=== PATIENT | male | born 1980 | race Caucasian/White ===

== ENCOUNTER → 2018-05-04 | Outpatient (CLI) | payer MEDICARE, OTHER ==
[2018-05-04 08:21] LABS: BASO # 0.1 x10^3/uL (0.0-0.2); BASO % 1 % (0-3); EOS # 0.3 x10^3/uL (0.0-0.7); EOS % 2 % (0-3); HEMATOCRIT 42.9 % (39.0-53.0); LYMPH % 19 % (24-48); MEAN CORPUSCULAR HEMOGLOBIN 33 pg (25-35); MEAN CORPUSCULAR HGB CONC 35 g/dL (31-37); MEAN CORPUSCULAR VOLUME 94 fL (79-100); MONO # 0.8 x10^3/uL (0.0-1.1); MONO % 7 % (0-9); NEUT # 7.4 x10^3uL (1.8-7.7); NEUT % 70 % (31-73); PLATELET COUNT 283 x10^3/uL (140-400); RED BLOOD COUNT 4.57 x10^6/uL (4.30-5.70); RED CELL DISTRIBUTION WIDTH 13.8 % (11.5-14.5); WHITE BLOOD COUNT 10.5 x10^3/uL (4.0-11.0)
[2018-05-04 09:50] LABS: ALBUMIN 3.4 g/dL (3.4-5.0); ALBUMIN/GLOBULIN RATIO 0.8 (1.0-1.7); CALCIUM 8.6 mg/dL (8.5-10.1); CREATININE 0.9 mg/dL (0.7-1.3); GFR 95.5; POTASSIUM 4.5 mmol/L (3.5-5.1); TOTAL BILIRUBIN 0.3 mg/dL (0.2-1.0); TOTAL PROTEIN 7.6 g/dL (6.4-8.2)
[2018-05-04 13:50] LABS: FREE T4 0.65 ng/dL (0.76-1.46); THYROID STIM HORMONE (TSH) 14.368 uIU/mL (0.358-3.740)
== END | disposition home or self-care (01) ==
LOC: LAB 07:21
DX: Z51.81 Encounter for therapeutic drug level monitoring (principal); Z79.899 Other long term (current) drug therapy
CPT/HCPCS: 36415; 80053; 80061; 82306; 84439; 84443; 84480; 85025

== ENCOUNTER 2018-05-09 11:31 | Emergency (ER) | payer MEDICARE, OTHER ==
[~2018-05-09] VITALS: Ht 172.7 cm; Wt 173.0 kg
[2018-05-09 11:45] VITALS: BP 152/91
[2018-05-09] MEDS ORDERED: HYDR-2758 PO (11:54)
[2018-05-09] MEDS ORDERED: HYDROcodone/APAP 5/325MG 1 TAB TABLET PO ONE (12:00)
--- NOTE | 2018-05-09 12:05 | PHYS DOC ---
Past History Past Medical History: Anxiety, Depression, Hypertension Past Surgical History: Cholecystectomy, Other Alcohol Use: None Drug Use: None Adult General Chief Complaint Chief Complaint: LOWER BACK PAIN OR INJURY HPI HPI 37-year-old male presenting to the emergency department today with atraumatic low back pain and bilateral leg pain. This started about 3 weeks ago. He really started his job which requires a lot of standing. After long hours standing he developed low back pain and leg pain. He has a history of chronic knee pain which also mildly hurts. He denies any new acuity to this pain but was asked to come in to work today and he reports that he is unable to go to work. He denies any unilateral leg swelling erythema. He denies history of DVTs or blood clots. She denies recent injury to his lower extremity or low back. He has a past medical history of high blood pressure high cholesterol, obesity and low thyroid. Review of systems is negative for chest pain shortness of breath. He denies any numbness weakness or tingling in his legs. He denies perineal paresthesias urinary or fecal incontinence. All other review of systems is negative unless otherwise noted in history of present illness. ED course: 37-year-old male presenting the emergency department with chronic low back pain. On arrival he is afebrile with a normal heart rate. On examination he has mild pain in the paraspinal musculature. 5 out of 5 strength in both lower extremities. 2+ deep tendon reflexes in the knees. No evidence of trauma in the lower legs or back. Neurovascularly intact in both lower extremities. 2 second cap refill. We will prescribe the patient oral pain medication in the interim along with IV ibuprofen, refer him to a physical therapist. The patient was then discharged home in stable condition to follow up with their primary care physician over the next 2-3 days. They were to return if their symptoms worsened or if they were concerned for any reason. Face -to-face discharge instructions and return precautions were given. Patient's questions were answered to their satisfaction. Patient is comfortable with plan. Review of Systems Review of Systems SEE ABOVE. Current Medications Current Medications Current Medications Medications (Trade) Dose Ordered Sig/Toshia Start Time Stop Time Status Last Admin Dose Admin Acetaminophen/ Hydrocodone Bitart (Lortab 5/325) 2 tab 1X ONCE 05/09/18 12:00 05/09/18 12:01 UNV Allergies Allergies Allergies Coded Allergies Type Severity Reaction Last Updated Verified No Known Drug Allergies 05/09/18 No Physical Exam Physical Exam SEE ABOVE Constitutional: Well developed, well nourished, no acute distress, non-toxic appearance. [] HENT: Normocephalic, atraumatic, bilateral external ears normal, oropharynx moist, no oral exudates, nose normal. [] Eyes: PERRLA, EOMI, conjunctiva normal, no discharge. [] Neck: Normal range of motion, no tenderness, supple, no stridor. [] Cardiovascular:Heart rate regular rhythm, no murmur [] Lungs & Thorax: Bilateral breath sounds clear to auscultation [] Abdomen: Bowel sounds normal, soft, no tenderness, no masses, no pulsatile masses. [] Skin: Warm, dry, no erythema, no rash. [] Back: mild tenderness as above. no stepoffs or fluctuant masses. Extremities: No tenderness, no cyanosis, no clubbing, ROM intact, no edema. [] Neurologic: Alert and oriented X 3, normal motor function, normal sensory function, no focal deficits noted. [] Psychologic: Affect normal, judgement normal, mood normal. [] Current Patient Data Vital Signs Vital Signs Date Time Temp Pulse Resp B/P (MAP) Pulse Ox O2 Delivery O2 Flow Rate FiO2 05/09/18 11:43 97.8 72 20 97 Room Air EKG EKG [] Radiology/Procedures Radiology/Procedures [] Course & Med Decision Making Course & Med Decision Making Pertinent Labs and Imaging studies reviewed. (See chart for details) [] Dragon Disclaimer Dragon Disclaimer This electronic medical record was generated, in whole or in part, using a voice recognition dictation system. Departure Departure: Impression: Primary Impression: Low back pain Disposition: HOME, SELF-CARE Condition: STABLE Referrals: PCP,NO (PCP) CORBY CALLAHAN MD Patient Instructions: Back Exercises, Back Pain, Adult Additional Instructions: Thank you for allowing us to participate in your care today. Followup with your primary care physician in 3 days if your symptoms do not improve. I recommend you establish care with a physical therapist for low back pain treatment. Call your Primary Doctor tomorrow and inform them of your visit today. If you do not have a primary care provider you can ask for a list of our primary care providers. Return to the emergency department you have any new or concerning findings. This should be evaluated by the primary care physician and any necessary consulting services for continued management within a few days after discharge. Return to emergency room if you have any new or concerning symptoms including but not limited to fever, chills, nausea, vomiting, intractable pain, any new rashes, chest pain, shortness of air, uncontrolled bleeding, difficulty breathing, and/or vision loss. If at any time, you are having difficulty getting into your primary care doctor or a specialist, return to the emergency department. You may have been prescribed medication or given medication in the emergency department that can change in your level of thinking and ability to operate machinery. These medications include hydrocodone and Ativan. Also, Benadryl has been known to do this as well. Be sure to check with your pharmacist and ask if the medications you've prescribed can affect your level of consciousness. I recommend not operating heavy machinery or driving while on medication such as these. Scripts Hydrocodone Bit/Acetaminophen (HYDROCODONE-APAP 5-325 ) 1 Each Tablet 1 TAB PO PRN Q6HRS PRN for PAIN, #10 TAB 0 Refills Prov: MICHAEL PARKER MD 05/09/18 MICHAEL PARKER MD May 09, 2018 12:05
== END 2018-05-09 12:00 | disposition home or self-care (01) ==
LOC: ER 11:31
DX: G89.29 Other chronic pain (principal); M54.5 Low back pain; M79.605 Pain in left leg; M79.604 Pain in right leg; I10 Essential (primary) hypertension; E78.00 Pure hypercholesterolemia, unspecified; E66.9 Obesity, unspecified; F41.9 Anxiety disorder, unspecified; F32.9 Major depressive disorder, single episode, unspecified; Z68.43 Body mass index [BMI] 50.0-59.9, adult
CPT/HCPCS: 99283

== ENCOUNTER 2018-05-12 11:00 | Emergency (ER) | payer MEDICARE, OTHER ==
[~2018-05-12] VITALS: Ht 172.7 cm; Wt 176.0 kg
[~2018-05-12 11:00] MED LIST: HYDR-2758 PO
[2018-05-12 11:16] VITALS: BP 128/81
[2018-05-12] MEDS: KETOROLAC 60 MG/2 ML VIAL. IM ONE (11:41)
--- NOTE | 2018-05-12 11:52 | RAD ---
LUMBAR SPINE 2-3V, SHOULDER 2+V RIGHT History: FELL OUT OF CHAIR TODAY WHEN IT BROKE. Comparison: None are available Three-view right shoulder No evidence of acute fracture. No dislocation. No aggressive bone destruction. IMPRESSION: No acute fracture or dislocation. Three-view lumbar spine Vertebral body height and alignment are intact. Small marginal spurs identified at multiple levels. Disc space height maintained. No acute fracture or aggressive bone destruction. IMPRESSION: No acute fracture or subluxation. Electronically signed by: Jeremie Wise MD (05/12/2018 11:49 AM) [facility]
--- NOTE | 2018-05-12 11:52 | RAD ---
LUMBAR SPINE 2-3V, SHOULDER 2+V RIGHT History: FELL OUT OF CHAIR TODAY WHEN IT BROKE. Comparison: None are available Three-view right shoulder No evidence of acute fracture. No dislocation. No aggressive bone destruction. IMPRESSION: No acute fracture or dislocation. Three-view lumbar spine Vertebral body height and alignment are intact. Small marginal spurs identified at multiple levels. Disc space height maintained. No acute fracture or aggressive bone destruction. IMPRESSION: No acute fracture or subluxation. Electronically signed by: Jeremie Wise MD (05/12/2018 11:49 AM) [facility]
[2018-05-12] MEDS ORDERED: NAPR-683 PO (12:06)
[2018-05-12] MEDS ORDERED: CYCL-331 PO (12:06)
--- NOTE | 2018-05-12 12:07 | PHYS DOC ---
Past History Past Medical History: Anxiety, Depression, Hypertension Past Surgical History: Cholecystectomy, Other Smoking: Cigarettes, Less than 1pk/day Alcohol Use: None Drug Use: None Adult General Chief Complaint Chief Complaint: BACK PAIN OR INJURY HPI HPI 37 year old male patient states he was at public [employer] and when he tried to sit down on a chair it broke and he fell on his back. Patient complaining of pain in lower back and right shoulder and denies head injury or loss of consciousness. Patient rated his pain 10/10 and denies focal neuro deficit and other injuries. Review of Systems Review of Systems Constitutional: Denies fever or chills [] Eyes: Denies change in visual acuity, redness, or eye pain [] HENT: Denies nasal congestion or sore throat [] Respiratory: Denies cough or shortness of breath [] Cardiovascular: No additional information not addressed in HPI [] GI: Denies abdominal pain, nausea, vomiting, bloody stools or diarrhea [] : Denies dysuria or hematuria [] Musculoskeletal: Reports back pain and joint pain Integument: Denies rash or skin lesions [] Neurologic: Denies headache, focal weakness or sensory changes [] Endocrine: Denies polyuria or polydipsia [] All other systems were reviewed and found to be within normal limits, except as documented in this note. Current Medications Current Medications Current Medications Medications (Trade) Dose Ordered Sig/Toshia Start Time Stop Time Status Last Admin Dose Admin Ketorolac Tromethamine (Toradol) 60 mg 1X ONCE 05/12/18 12:00 05/12/18 12:01 05/12/18 11:41 60 MG Allergies Allergies Allergies Coded Allergies Type Severity Reaction Last Updated Verified No Known Drug Allergies 05/09/18 No Physical Exam Physical Exam Constitutional: Well developed, mild distress, non-toxic appearance, morbidly obese. [] HENT: Normocephalic, atraumatic Eyes: PERRLA, EOMI, conjunctiva normal, no discharge. [] Neck: Normal range of motion, no tenderness, supple, no stridor. [] Cardiovascular:Heart rate regular rhythm, no murmur [] Lungs & Thorax: Bilateral breath sounds clear to auscultation [] Abdomen: Bowel sounds normal, soft, no tenderness, no masses, no pulsatile masses. [] Skin: Warm, dry, no erythema, no rash. [] Back: No midline tenderness, no CVA tenderness, no ecchymosis, limited range of motion with pain. [] Extremities: Right shoulder without sign of injury or deformity, no neurovascular deficit, range of motion normal at patient complaining of pain, no cyanosis, no clubbing, no edema. [] Neurologic: Alert and oriented X 3, normal motor function, normal sensory function, no focal deficits noted. [] Psychologic: Affect normal, judgement normal, mood normal. [] Current Patient Data Vital Signs Vital Signs Date Time Temp Pulse Resp B/P (MAP) Pulse Ox O2 Delivery O2 Flow Rate FiO2 05/12/18 11:16 98.5 70 18 96 Room Air EKG EKG [] Radiology/Procedures Radiology/Procedures [][address] [address] IMAGING REPORT Signed PATIENT: JANIE WASHINGTON ACCOUNT: [id number] : 1980 LOCATION: ER AGE: 37 SEX: M EXAM STATUS: REG ER ORD. PHYSICIAN: EDGARD STOUT MD REASON: fall PROCEDURE: LUMBAR SPINE 2-3V LUMBAR SPINE 2-3V, SHOULDER 2+V RIGHT History: FELL OUT OF CHAIR TODAY WHEN IT BROKE. Comparison: None are available Three-view right shoulder No evidence of acute fracture. No dislocation. No aggressive bone destruction. IMPRESSION: No acute fracture or dislocation. Three-view lumbar spine Vertebral body height and alignment are intact. Small marginal spurs identified at multiple levels. Disc space height maintained. No acute fracture or aggressive bone destruction. IMPRESSION: No acute fracture or subluxation. Electronically signed by: Jeremie Wise MD (05/12/2018 11:49 AM) [facility] DICTATED AND SIGNED BY: JEREMIE WISE MD DATE: 05/12/18 [id number] CC: EDGARD STOUT MD; PCP,NO ~ [address] [address] IMAGING REPORT Signed PATIENT: JANIE WASHINGTON ACCOUNT: [id number] : 1980 LOCATION: ER AGE: 37 SEX: M EXAM STATUS: REG ER ORD. PHYSICIAN: EDGARD STOUT MD REASON: fall PROCEDURE: SHOULDER 2+V RIGHT LUMBAR SPINE 2-3V, SHOULDER 2+V RIGHT History: FELL OUT OF CHAIR TODAY WHEN IT BROKE. Comparison: None are available Three-view right shoulder No evidence of acute fracture. No dislocation. No aggressive bone destruction. IMPRESSION: No acute fracture or dislocation. Three-view lumbar spine Vertebral body height and alignment are intact. Small marginal spurs identified at multiple levels. Disc space height maintained. No acute fracture or aggressive bone destruction. IMPRESSION: No acute fracture or subluxation. Electronically signed by: Jeremie Wise MD (05/12/2018 11:49 AM) [facility] DICTATED AND SIGNED BY: JEREMIE WISE MD DATE: 05/12/18 1146 CC: EDGARD STOUT MD; PCP,NO ~ Course & Med Decision Making Course & Med Decision Making discharge: I've spoken with the patient and/or caregivers. I've explained the patient's condition, diagnosis and treatment plan based on information available to me at this time. I've answered the patient's and/or caregivers questions and addressed any concerns. The patient and/or caregivers have a good understanding the patient's diagnosis, condition and treatment plan as can be expected at this point. Vital signs have been stabilized. The patient's condition is stable for discharge from the emergency department. The patient will pursue further outpatient evaluation with her primary care provider or other designated consulting physician as outlined in the discharge instructions. Patient and/or caregivers are agreeable to this plan of care and follow-up instructions have been explained in detail. The patient and/or caregivers have received these instructions in written format and expressed understanding of these discharge instructions. The patient and her caregivers are aware that if any significant change in condition or worsening of symptoms should prompt him to immediately return to this of the closest emergency department. If an emergent department is not readily available I would encourage him to call 911. [place] Disclaimer Dragon Disclaimer This electronic medical record was generated, in whole or in part, using a voice recognition dictation system. Departure Departure: Impression: Primary Impression: Acute lumbar myofascial strain Additional Impressions: Right shoulder strain Fall Morbid obesity Tobacco abuse Tobacco abuse counseling Disposition: HOME, SELF-CARE (At 1202) Condition: IMPROVED Referrals: [facility] (PCP) Patient Instructions: Lumbosacral Strain, Shoulder Sprain, Smoking Cessation, Tips For Success Additional Instructions: Apply ice on the affected are Drink plenty of liquids Follow-up with your primary care physician in 3-5 days Return to ER if not getting better Scripts Cyclobenzaprine Hcl (CYCLOBENZAPRINE HCL) 10 Mg Tablet 1 TAB PO TID, #21 TAB Prov: EDGARD STOUT MD 05/12/18 Naproxen (NAPROSYN) 500 Mg Tablet 1 TAB PO BID, #14 TAB 1 Refill Prov: EDGARD STOUT MD 05/12/18 Problem Qualifiers EDGARD STOUT MD May 12, 2018 12:06
== END 2018-05-12 12:15 | disposition home or self-care (01) ==
LOC: ER 11:00
DX: S39.012A Strain of muscle, fascia and tendon of lower back, initial encounter (principal); S46.911A Strain of unspecified muscle, fascia and tendon at shoulder and upper arm level, right arm, initial encounter; E66.01 Morbid (severe) obesity due to excess calories; I10 Essential (primary) hypertension; F17.210 Nicotine dependence, cigarettes, uncomplicated; Z71.6 Tobacco abuse counseling; Z68.43 Body mass index [BMI] 50.0-59.9, adult; W07.XXXA Fall from chair, initial encounter; Y93.89 Activity, other specified; Y99.8 Other external cause status; Y92.241 Library as the place of occurrence of the external cause
CPT/HCPCS: 72100; 73030; 96372; 99284; J1885

== ENCOUNTER → 2020-08-28 08:15 | Emergency (ER) | payer MEDICARE, OTHER ==
[~2020-08-28 08:15] MED LIST changes: +CYCL-331 PO; +HYDR-2155 PO; -HYDR-2758 PO; +NAPR-683 PO
== END | disposition left against medical advice (07) ==
LOC: ER 08:15
DX: R05 Cough (principal); R06.02 Shortness of breath; Z53.21 Procedure and treatment not carried out due to patient leaving prior to being seen by health care provider

== ENCOUNTER 2020-11-26 15:00 | Emergency (ER) | payer MEDICARE, OTHER ==
[2020-11-26] MEDS ORDERED: PIPERACILLIN/TAZOBACTAM 4.5 GM in IV NORMAL SALINE 50ML 50 ML IV ONE (15:45)
[2020-11-26] MEDS ORDERED: IV NORMAL SALINE 1,000ML 1,000 ML IV ONE (16:00)
--- NOTE | 2020-11-26 16:05 | RAD ---
PA and lateral chest. HISTORY: Short of breath PA and lateral views were taken of the chest. Lungs are free of infiltrates. Heart is normal in size. There is no effusion. IMPRESSION: 1. No acute infiltrates or acute chest disease. Electronically signed by: Joni Miller MD (11/26/2020 3:56 PM) [facility]
[2020-11-26] MEDS ORDERED: IV NORMAL SALINE 50ML 50 ML ONE (16:07)
[2020-11-26] MEDS ORDERED: PIPERACILLIN/TAZOBACTAM 4.5 GM VIAL IV ONE (16:08)
[2020-11-26 16:11] LABS: BASO # 0.2 x10^3/uL (0.0-0.2); BASO % 2 % (0-3); EOS # 0.4 x10^3/uL (0.0-0.7); EOS % 3 % (0-3); HEMATOCRIT 43.4 % (39.0-53.0); HEMOGLOBIN 14.6 g/dL (13.0-17.5); LYMPH # 1.9 x10^3/uL (1.0-4.8); LYMPH % 16 % (24-48); MEAN CORPUSCULAR HEMOGLOBIN 32 pg (25-35); MEAN CORPUSCULAR HGB CONC 34 g/dL (31-37); MEAN CORPUSCULAR VOLUME 95 fL (79-100); MONO # 0.6 x10^3/uL (0.0-1.1); MONO % 5 % (0-9); NEUT # 8.7 x10^3uL (1.8-7.7); NEUT % 74 % (31-73); PLATELET COUNT 336 x10^3/uL (140-400); RED BLOOD COUNT 4.59 x10^6/uL (4.30-5.70); RED CELL DISTRIBUTION WIDTH 13.9 % (11.5-14.5); WHITE BLOOD COUNT 11.8 x10^3/uL (4.0-11.0)
[2020-11-26] MEDS ORDERED: VANCOMYCIN 2 GM in IV NORMAL SALINE 500ML 500 ML IV ONE (16:15)
[2020-11-26 16:22] LABS: GFR 83.2; POTASSIUM 4.3 mmol/L (3.5-5.1)
[2020-11-26 16:27] LABS: ALBUMIN 2.9 g/dL (3.4-5.0); ALBUMIN/GLOBULIN RATIO 0.6 (1.0-1.7); TOTAL BILIRUBIN 0.3 mg/dL (0.2-1.0); TOTAL PROTEIN 7.8 g/dL (6.4-8.2)
--- NOTE | 2020-11-26 16:27 | EKG ---
[address] [address] Test Date: 2020-11-26 Test Time: 16:02:52 Pat Name: JANIE WASHINGTON Department: Room: Gender: M Nail Sticker: SUMMER : 1980 Requested By: MAYO PARIKH Order Number: [id number] Reading MD: Measurements Intervals [place] Rate: 101 P: 125 DE: 100 QRS: 66 QRSD: 78 T: -2 QT: 352 QTc: 457 Interpretive Statements SINUS TACHYCARDIA LEFT ATRIAL ABNORMALITY LOW LIMB LEAD VOLTAGE ABNORMAL ECG RI6.02 No previous ECG available for comparison
[2020-11-26] MEDS ORDERED: INSULIN REGULAR 100 UNIT/ML 3ML VIAL. IV ONE (16:45)
[2020-11-26] MEDS ORDERED: KETOROLAC 30 MG/ML VIAL. IVP ONE (17:00)
[2020-11-26] MEDS ORDERED: FLUCONAZOLE 100 MG TABLET. PO ONE (17:45)
--- NOTE | 2020-11-26 17:45 | PHYS DOC ---
Past History Past Medical History: High Cholesterol, Hypertension, Hypothyroid, Other Additional Past Medical Histor: boarderline diabetes (MAYO PARIKH APRN) Past Surgical History: Cholecystectomy, Other Additional Past Surgical Histo: hernia repair, left hand (MAYO PARIKH APRN) Smoking: Cigarettes, Less than 1pk/day Alcohol Use: Rarely Drug Use: None (MYAO PARIKH APRN) Adult General Chief Complaint Chief Complaint: CELLULITIS HPI HPI Patient is a 40-year-old male presents emergency department complaining of a sore on his left lower leg for the past week. Patient also states he has had tiny sores popping up around his body for the past several months. Patient also states for the past 3 months he has had increased urination and increased thirst and wants to be checked for diabetes today. Patient also states he has a yeast infection in his groin area. Patient states he has chronic back pain and would like to have a refill for his muscle relaxer and Swayzee pills. Patient states that he denies chest pain, however has shortness of breath. Patient denies chest congestion, nasal congestion, sore throat. Patient denies nausea, vomiting, diarrhea, constipation. Patient states that his teeth have been riding and falling out of his mouth and he does not know why. Patient denies cigarette smoking, denies illicit drug use, denies alcohol use. Patient denies any other physical illnesses or physical concerns. Patient denies any recent fever or chills. (MAYO PARIKH APRN) Review of Systems Review of Systems 14 body systems of review of systems have been reviewed. See HPI for pertinent positives and negative responses, otherwise all other systems are negative, nonpertinent or noncontributory. (MAYO PARIKH APRN) Current Medications Current Medications Current Medications Medications (Trade) Dose Ordered Sig/Toshia Start Time Stop Time Status Last Admin Dose Admin Fluconazole (Diflucan) 200 mg 1X ONCE 11/26/20 17:45 11/26/20 17:46 Insulin Human Regular (HumuLIN R VIAL) 5 unit 1X ONCE 11/26/20 16:45 11/26/20 16:46 DC 11/26/20 16:49 5 UNIT Ketorolac Tromethamine (Toradol 30mg Vial) 30 mg 1X ONCE 11/26/20 17:00 11/26/20 17:09 DC 11/26/20 16:59 30 MG Piperacillin Sod/ Tazobactam Sod (Zosyn) 4.5 gm STK-MED ONCE 11/26/20 16:08 11/26/20 16:08 DC Piperacillin Sod/ Tazobactam Sod 4.5 gm/Sodium Chloride 50 ml @ 100 mls/hr 1X ONCE 11/26/20 15:45 11/26/20 16:14 DC 11/26/20 16:24 100 MLS/HR Sodium Chloride 50 ml @ As Directed STK-MED ONCE 11/26/20 16:07 11/26/20 16:08 DC Vancomycin HCl 2 gm/Sodium Chloride 500 ml @ 250 mls/hr 1X ONCE 11/26/20 16:15 11/26/20 18:14 11/26/20 16:56 250 MLS/HR (MAYO PARIKH APRN) Allergies Allergies Allergies Coded Allergies Type Severity Reaction Last Updated Verified No Known Drug Allergies 11/26/20 No (MAYO PARIKH APRN) Physical Exam Physical Exam Constitutional: Well developed, well nourished, no acute distress, non-toxic mandi earance. HENT: Normocephalic, atraumatic, bilateral external ears normal, oropharynx moist, no oral exudates, nose normal. Poor dentition, multiple broken teeth, multiple missing teeth. Teeth color dark sorto. Oral mucosa and tongue with multiple open lesions measuring approximately 1 to 2 mm in diameter without purulent drainage. Eyes: PERRLA, EOMI, conjunctiva normal, no discharge. Neck: Normal range of motion, no tenderness, supple, no stridor. Cardiovascular:Heart rate regular rhythm, no murmur heart sounds S1-S2 auscultation. Lungs & Thorax: Bilateral breath sounds clear to auscultation all lung amador. Abdomen: Bowel sounds normal, soft, no tenderness, no masses, no pulsatile masses. Round, obese. Skin: Warm, dry, no erythema, approximately 2 cm abscess draining purulent drainage with underlying 7 cm erythemic induration to left medial lower leg just superior to the ankle. A culture was obtained from the open central punctum purulent drainage. Multiple erythematous lesions along extremities trunk anterior and posteriorly measuring 2 to 3 mm in diameter without drainage. Patient's groin, genitals, abdominal fold and pannus area reddened erythematous with minor superficial skin sloughing consistent with yeast infection. Skin of right hand digits 2 and 3 distal tips yellowed consistent with cigarette smoking. Back: No tenderness, no CVA tenderness. Extremities: No tenderness, no cyanosis, no clubbing, ROM intact, no edema. Neurologic: Alert and oriented X 3, normal motor function, normal sensory function, no focal deficits noted. Psychologic: Affect normal, judgement normal, mood normal. (MAYO PARIKH APRN) Current Patient Data Vital Signs Vital Signs Date Time Temp Pulse Resp B/P (MAP) Pulse Ox O2 Delivery O2 Flow Rate FiO2 11/26/20 15:05 98.4 109 30 156/91 (112) 95 Room Air Lab Results Laboratory Tests Test 11/26/20 15:20 11/26/20 15:32 11/26/20 15:35 11/26/20 16:00 Glucose (Fingerstick) 507 mg/dL (70-99) *H POC Venous pH 7.42 (7.32-7.42) POC Venous pCO2 38 mmHg (41-51) L POC Venous pO2 61 mmHg (20-40) H Venous Blood HCO3 25 mmol/L (24-28) POC Venous O2 Saturation (Madelyn) 91 % POC FiO2 21 White Blood Count 11.8 x10^3/uL (4.0-11.0) H Red Blood Count 4.59 x10^6/uL (4.30-5.70) Hemoglobin 14.6 g/dL (13.0-17.5) Hematocrit 43.4 % (39.0-53.0) Mean Corpuscular Volume 95 fL (79-100) Mean Corpuscular Hemoglobin 32 pg (25-35) Mean Corpuscular Hemoglobin Concent 34 g/dL (31-37) Red Cell Distribution Width 13.9 % (11.5-14.5) Platelet Count 336 x10^3/uL (140-400) Neutrophils (%) (Auto) 74 % (31-73) H Lymphocytes (%) (Auto) 16 % (24-48) L Monocytes (%) (Auto) 5 % (0-9) Eosinophils (%) (Auto) 3 % (0-3) Basophils (%) (Auto) 2 % (0-3) Neutrophils # (Auto) 8.7 x10^3uL (1.8-7.7) H Lymphocytes # (Auto) 1.9 x10^3/uL (1.0-4.8) Monocytes # (Auto) 0.6 x10^3/uL (0.0-1.1) Eosinophils # (Auto) 0.4 x10^3/uL (0.0-0.7) Basophils # (Auto) 0.2 x10^3/uL (0.0-0.2) Sodium Level 131 mmol/L (136-145) L Potassium Level 4.3 mmol/L (3.5-5.1) Chloride Level 94 mmol/L (98-107) L Carbon Dioxide Level 25 mmol/L (21-32) Anion Gap 12 (6-14) Blood Urea Nitrogen 14 mg/dL (8-26) Creatinine 1.0 mg/dL (0.7-1.3) Estimated GFR (Cockcroft-Gault) 83.2 BUN/Creatinine Ratio 14 (6-20) Glucose Level 443 mg/dL (70-99) H Calcium Level 9.0 mg/dL (8.5-10.1) Total Bilirubin 0.3 mg/dL (0.2-1.0) Aspartate Amino Transferase (AST) 29 U/L (15-37) Alanine Aminotransferase (ALT) 44 U/L (16-63) Alkaline Phosphatase 116 U/L (46-116) Ammonia 21 mcmol/L (11-34) Total Protein 7.8 g/dL (6.4-8.2) Albumin 2.9 g/dL (3.4-5.0) L Albumin/Globulin Ratio 0.6 (1.0-1.7) L Lipase 90 U/L (73-393) Acetone Level Neg (NEG) Lactic Acid Level 3.9 mmol/L (0.4-2.0) H (MAYO PARIKH APRN) EKG EKG EKG performed at 1602 by house respiratory therapy staff shows 101 bpm, sinus tachycardia without other ectopy, FL interval 0.100, QTc interval 0.457, no acute STEMI, no acute ACS, no acute ischemia noted, EKG interpreted by ED attending physician Dr. Laughlin [] (MAYO PARIKH APRN) Radiology/Procedures Radiology/Procedures SEX: M EXAM STATUS: REG ER ORD. PHYSICIAN: MAYO PARIKH APRN REASON: SHORT OF BREATH PROCEDURE: CHEST PA & LATERAL PA and lateral chest. HISTORY: Short of breath PA and lateral views were taken of the chest. Lungs are free of infiltrates. Heart is normal in size. There is no effusion. IMPRESSION: 1. No acute infiltrates or acute chest disease. Electronically signed by: Joni Miller MD (11/26/2020 3:56 PM) [facility] DICTATED AND SIGNED BY: JONI MILLER MD DATE: 11/26/20 1555 CC: MAYO PARIKH APRN; JONO LAUGHLIN DO; PCP,NO ~MTH0 0 (MAYO PARIKH APRN) Heart Score Risk Factors: Risk Factors: DM, Current or recent (<one month) smoker, HTN, HLP, family history of CAD, obesity. Risk Scores: Risk Factors: DM, Current or recent (<one month) smoker, HTN, HLP, family history of CAD, obesity. (MAYO PARIKH APRN) Course & Med Decision Making Course & Med Decision Making Pertinent Labs and Imaging studies reviewed. (See chart for details) 40-year-old male presents emergency department complaint of sore in his left leg, wanting to be checked for diabetes, and his sores in his mouth, poor dentition, and tiny lesions on his skin over his legs arms and trunk. 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 Patient then stated that he had been smoking a lot more than usual, but he is planning on quitting today. ER work-up was initiated consisting of EKG, chest x-ray, serum labs, urine assay. Discussed with patient serum labs concerning for diabetes, serum blood glucose equals 143. Patient's acetone level was 0, blood gases did not suggest DKA. CBC did not suggest acute infection, the patient's urine was not infected. Pending wound culture C&S at this time. Patient was treated with 1 L of normal saline along with 5 units regular insulin IV which brought his blood sugar down to 329 per bedside fingerstick. Patient's left lower leg infection consistent with an abscess with cellulitis was treated with 2 g vancomycin and 4.5 g Zosyn IV piggyback. Discussed patient need to start on Metformin regimen and increasing dosing of Metformin, will need to start monitoring his own blood sugars and keeping a close an accurate record of his blood sugars so that he can follow-up with a primary care physician and have his diabetes fully evaluated and accurately diagnosed. Patient will be given oral antibiotics for his leg infection. Discussed with patient need to use an ummb-lej-[id number] yeast infection cream such as Lotrimin or Tinactin that he can get at the pharmacy to apply on his jock itch yeast infection. Discussed with patient stomatitis/mucositis is self- limiting, offered Magic mouthwash, patient elected not to use Magic mouthwash stating that he has used in the past and it makes him gag. Patient gave verbal understanding of discharge medication prescription use, return to ER for precautions and concerns, patient was discharged home without incident. Impression: #1 cellulitis of the left lower leg #2 abscess of the left lower leg #3 tinea cruris #4 substance abuse #5 oral stomatitis and mucositis #6 new onset diabetes (MAYO PARIKH APRN) Course & Med Decision Making I oversaw on the above date of service of this patient and discussed the care with the DIRECTOR OF ADULT EPILEPSY. I personally saw patient and repeated certain aspects of history and physical exam. I agree with the findings, plan of care, and disposition as documented. Critical Care Time This patient required critical care. Due to the fact that the patient required a significant amount of one on one physician - patient contact time, ordering and review of studies, arranging urgent treatment with development of a management plan, evaluation of patients response to treatment with frequent reassessments, and discussions with other providers this patient required 60 minutes minutes of critical care time. Critical care time was indicated due to the inherent instability and/or potential for instability in this patient. The critical care time that is allocated to this patient is above and beyond any time spent on any other billable procedures performed on this patient. (JONO LAUGHLIN DO) Breeon Disclaimer Dragon Disclaimer This electronic medical record was generated, in whole or in part, using a voice recognition dictation system. (MAYO PARIKH APRN) Departure Departure: Impression: Primary Impression: Cellulitis and abscess of left leg Additional Impressions: Stomatitis and mucositis Substance abuse Diabetes mellitus, new onset Tinea cruris Disposition: 01 DC HOME SELF CARE/HOMELESS Condition: IMPROVED Referrals: PCP,NO (PCP) Patient Instructions: Abscess, Diabetes Meal Planning Guide, Diabetes, FAQs, Stomatitis Additional Instructions: Please take prescribed medications as directed, it is imperative that you follow-up with a primary care physician this week so that you can have your diabetes evaluated. Please return to the emergency department for worsening symptoms or other concerns. EMERGENCY DEPARTMENT GENERAL DISCHARGE INSTRUCTIONS Thank you for coming to [facility] (ED) today and trusting us with you care. We trust that you had a positivie experience in our Emergency Department. If you wish to speak to the department management, you may call the director at [phone]. YOUR FOLLOW UP INSTRUCTIONS ARE FOLLOWS: 1. Do you have a private Doctor? If you do not have a private doctor, please ask for a resource list of physicians or clinics that may be able to assist you with follow up care. 2. The Emergency Physician has interpreted your x-rays. The X-Ray specialist will also review them. If there is a change in the findings, you will be notified in 48 hours when at all possible. 3. A lab test or culture has been done, your results will be reviewed and you will be notified if you need a change in treatment. ADDITIONAL INSTRUCTIONS AND INFORMATION: 1. Your care today has been supervised by a physician who is specially trained in emergency care. Many problems require more than one evaluation for a complete diagnosis and treatment. We recommend that you schedule your follow up appointment as recommended to ensure complete treatment of you illness or injury. If you are unable to obtain follow up care and continue to have a problem, or if your condition worsens, we recommend that you return to the ED. 2. We are not able to safely determine your condition over the phone nor are we able to give sound medical advice over the phone. For these safety reasons, if you call for medical advice we will ask you to come to the ED for further evaluation. 3. If you have any questions regarding these discharge instructions please call the ED at [phone]. SAFETY INFORMATION: In the interest of safety, wellness, and injury prevention; we encourage you to wear your sealbelt, if you smoke; quite smoking, and we encourage family to use a protective helmet for bicycling and other sporting events that present an increased risk for head injury. IF YOUR SYMPTOMS WORSEN OR NEW SYMPTOMS DEVELOP, OR YOU HAVE CONCERNS ABOUT YOUR CONDITION; OR IF YOUR CONDITION WORSENS WHILE YOU ARE WAITING FOR YOUR FOLLOW UP APPOINTMENT; EITHER CONTACT YOUR PRIMARY CARE DOCTOR, THE PHYSICIAN WHOSE NAME AND NUMBER YOU WERE GIVEN, OR RETURN TO THE ED IMMEDIATELY. Scripts Lancets (Ez-Lets) 1 Each Each EACH MC BID for CHECK BLOOD SUGAR, #120 0 Refills USE FOR CHECKING BLOOD SUGAR Prov: MAYO PARKIH APRN 11/26/20 Lancets/Blood Glucose Strips (Lancet 30G-Glucose Test Strip) 1 Each Combo..pkg EACH MC BID for TO CHECK BLOOD SUGAR, #1 USE DIRECTED Prov: MAYO PARIKH APRN 11/26/20 Blood-Glucose Meter (Accu-Chek Guide Me Glucose Mtr) 1 Each Each EACH MC for CHECK BLOOD SUGER TWICE A DAY, #1 CHECK BLOOD SUGAR TWICE A DAY Prov: MAYO PARIKH APRN 11/26/20 Metformin Hcl (METFORMIN HCL) 500 Mg Tablet 1 TAB PO UD for NEW ONSET DIABETES, #180 TAB 1 Refill TAKE ONE TABLET TWICE A DAY FOR OPNE WEEK, THEN INCREASE TO TWO TABLETS IN AM AND ONE TABLET IN PM FOR ONE WEEK, THEN INCREASE TO TWO TABLETS TWICE A DAY. Prov: MAYO PARIKH APRN 11/26/20 Doxycycline Hyclate (DOXYCYCLINE HYCLATE) 100 Mg Capsule 1 CAP PO BID for LEG INFECTION, #14 CAP Prov: MAYO PARIKH APRN 11/26/20 Amoxicillin/Potassium Clav (AUGMENTIN 875-125 TABLET) 1 Each Tablet 1 TAB PO BID for LEG INFECTION for 10 Days, #20 TAB 0 Refills Prov: MAYO PARIKH APRN 11/26/20 Problem Qualifiers MAYO PARIKH APRN Nov 26, 2020 17:45 JONO LAUGHLIN DO Nov 27, 2020 06:09
[2020-11-26 18:23] VITALS: BP 150/97
[2020-11-26 18:56] LABS: BARBITURATES NEG (NEG); BENZODIAZEPINES NEG (NEG); CANNABINOIDS NEG (NEG); COCAINE NEG (NEG); METHADONE NEG (NEG); OPIATES NEG (NEG); PHENCYCLIDINE NEG (NEG)
[2020-11-26 18:59] LABS: AMPHETAMINE/METHAMPHETAMINE POS (NEG)
[2020-11-26 19:05] LABS: BACTERIA,URINE 0 /HPF (0-FEW); BILIRUBIN,URINE NEG (NEG); CLARITY,URINE CLEAR; COLOR,URINE YELLOW; GLUCOSE,URINE >=1000 mg/dL (NEG); NITRITE,URINE NEG (NEG); UROBILINOGEN,URINE 0.2 mg/dL (0.2 mg/dL); WBC,URINE OCC /HPF (0-4)
[2020-11-26 19:06] LABS: SQUAMOUS EPITHELIAL CELL,UR MOD /LPF
[2020-11-26] MEDS ORDERED: METF500T16 PO (19:49)
[2020-11-26] MEDS ORDERED: BLOO-1396 MC (19:49)
[2020-11-26] MEDS ORDERED: LANC1COM6 MC (19:49)
[2020-11-26] MEDS ORDERED: DOXY100C2 PO (19:49)
[2020-11-26] MEDS ORDERED: AMOX1TAB61 PO (19:49)
[2020-11-26] MEDS ORDERED: [UNRECOGNIZED DRUG - CODE] MC (19:49)
== END 2020-11-26 20:00 | disposition home or self-care (01) ==
LOC: ER 15:00
DX: L03.116 Cellulitis of left lower limb (principal); L02.416 Cutaneous abscess of left lower limb; B35.6 Tinea cruris; F19.10 Other psychoactive substance abuse, uncomplicated; K12.0 Recurrent oral aphthae; K12.30 Oral mucositis (ulcerative), unspecified; E11.9 Type 2 diabetes mellitus without complications; E78.00 Pure hypercholesterolemia, unspecified; I10 Essential (primary) hypertension; E03.9 Hypothyroidism, unspecified; F17.210 Nicotine dependence, cigarettes, uncomplicated; Z79.899 Other long term (current) drug therapy
CPT/HCPCS: 36415; 71046; 80053; 80307; 81001; 82010; 82140; 82803; 82947; 83605; 83690; 84443; 84484; 85025; 87040; 87070; 87077; 87186; 93005; 96365; 96366; 96367; 96375; 99285; J1815; J1885; J2543; J3370; J7030; J7040